=== PATIENT | female | born 1935 | race Caucasian/White ===

== ENCOUNTER 2019-09-23 18:44 | Emergency (ER) | payer MEDICARE ==
[~2019-09-23] VITALS: Ht 152.4 cm; Wt 127.0 kg
[~2019-09-23 18:44] MED LIST: BENA10 PO; CELE200 PO
[2019-09-23] MEDS ORDERED: EUTHYROX75 MC1 PO (18:58)
[2019-09-23] MEDS ORDERED: MICROZIDE12.5 M1 PO (18:59)
[2019-09-23] MEDS ORDERED: LOSARTAN POTAS100 MG PO (18:59)
[2019-09-23 19:05] LABS: Source, Urine Clean Catch
[2019-09-23 19:07] LABS: Appearance, Urine Clear (Clear); Bilirubin, Urine Neg (Neg); Blood, Urine 5+ (Neg); Color, Urine Yellow (P-Yellow); Glucose Qualitative, Urine Neg (Neg); Ketones, Urine 1+ (Neg); Leukocyte Esterase, Urine Neg (Neg); Nitrite, Urine Neg (Neg); Protein, Urine 2+ (Neg); Urobilinogen, Urine NORM (Normal)
[2019-09-23 19:23] LABS: Red Blood Cells, Urine 50-100 /hpf (0-2); White Blood Cells, Urine Not Seen /hpf (0-5)
[2019-09-23 19:24] LABS: BASOPHILS ABSOLUTE AUTO 0.03 K/mm3 (0.00-0.23); BASOPHILS PERCENT AUTO 0 % (0-2); EOSINOPHILS ABSOLUTE AUTO 0.07 K/mm3 (0.00-0.68); EOSINOPHILS PERCENT AUTO 1 % (0-6); Hematocrit 42.7 % (33.0-51.0); Hemoglobin 13.8 g/dL (11.5-16.0); IMMATURE GRAN ABSOLUTE AUTO 0.05 K/mm3 (0.00-0.10); IMMATURE GRAN PERCENT AUTO 1 % (0-1); LYMPHOCYTES ABSOLUTE AUTO 0.87 K/mm3 (0.84-5.20); LYMPHOCYTES PERCENT AUTO 11 % (21-46); MONOCYTES ABSOLUTE AUTO 0.41 K/mm3 (0.16-1.47); MONOCYTES PERCENT AUTO 5 % (4-13); Mean Corpuscular HGB 31.9 pg (26.0-34.0); Mean Corpuscular HGB Conc 32.3 g/dL (31.5-36.5); Mean Corpuscular Volume 99 fL (80-100); Mean Platelet Volume 11.4 fL (9.1-12.4); NEUTROPHILS ABSOLUTE AUTO 6.82 K/mm3 (1.96-9.15); NEUTROPHILS PERCENT AUTO 83 % (41-73); Platelet Count 116 K/mm3 (150-400); RDW Coefficient Variation 13.2 % (11.7-14.2); RDW Standard Deviation 47.7 fL (35.1-46.3); Red Blood Cell Count 4.32 M/mm3 (3.80-5.20); White Blood Cell Count 8.25 K/mm3 (4.00-11.30)
[2019-09-23 19:24] LABS: Bacteria Not Seen /hpf; Squamous Epithelial Cells Few /hpf (Few); Yeast/Fungi Urine Few /hpf
[2019-09-23 19:48] LABS: Albumin, Blood 3.6 g/dL (3.4-5.0); Albumin/Globulin Ratio 0.9 (0.8-1.8); Bilirubin, Total 0.5 mg/dL (0.1-1.0); Bun/Creatinine Ratio 24.8 (12.0-20.0); Calcium, Blood 8.8 mg/dL (8.5-10.1); Creatinine, Blood 1.21 mg/dL (0.40-1.00); Globulin, Blood 4.1 g/dL (2.2-4.0); Potassium, Blood 4.3 mmol/L (3.5-5.5); Total Protein, Blood 7.7 g/dL (6.4-8.2)
[2019-09-23] MEDS ORDERED: Norco 5-325 Ta1 EACH PO (21:11)
== END 2019-09-23 21:23 | disposition home or self-care (01) ==
LOC: ER 18:44
PROVIDERS: Emergency Medicine
DX: N13.2 Hydronephrosis with renal and ureteral calculous obstruction (principal); N28.9 Disorder of kidney and ureter, unspecified; Z88.5 Allergy status to narcotic agent; Z79.899 Other long term (current) drug therapy; I10 Essential (primary) hypertension; E03.9 Hypothyroidism, unspecified
CPT/HCPCS: 74176; 80053; 81001; 83690; 85025; 99284-25; A9270

== ENCOUNTER → 2019-10-27 | Outpatient (CLI) | payer MEDICARE ==
[~2019-10-27] MED LIST changes: +EUTHYROX75 MC1 PO; +LOSARTAN POTAS100 MG PO; +MICROZIDE12.5 M1 PO; +Norco 5-325 Ta1 EACH PO
== END | disposition home or self-care (01) ==
LOC: LAB 07:46 → LAB SHORT 07:46
DX: E03.9 Hypothyroidism, unspecified (principal); E11.8 Type 2 diabetes mellitus with unspecified complications; I10 Essential (primary) hypertension; E78.2 Mixed hyperlipidemia
CPT/HCPCS: 82043

== ENCOUNTER → 2021-10-31 | Outpatient (CLI) | payer MEDICARE ==
[~2021-10-31] MED LIST changes: +ACET500 PO; +DICY20 PO
== END | disposition home or self-care (01) ==
LOC: LAB 06:40 → LAB SHORT 06:40
DX: E11.8 Type 2 diabetes mellitus with unspecified complications (principal); R10.9 Unspecified abdominal pain
CPT/HCPCS: 82043; 87338

== ENCOUNTER 2022-12-22 04:16 | Observation (INO) | payer MEDICARE ==
[~2022-12-22] VITALS: Ht 152.4 cm; Wt 125.2 kg
[~2022-12-22 04:16] MED LIST changes: +AMLO10 PO; +AMOX875 PO; +Acetaminophen650 M1 PO; +CEPH500 PO; +HYDCHL25 PO; +LISI20 PO; +PREG50 PO; +SPIR50 PO
[2022-12-22 05:11] LABS: Source, Urine Voided
[2022-12-22 05:18] LABS: BASOPHILS ABSOLUTE AUTO 0.02 K/mm3 (0.00-0.23); BASOPHILS PERCENT AUTO 0 % (0-2); EOSINOPHILS ABSOLUTE AUTO 0.05 K/mm3 (0.00-0.68); EOSINOPHILS PERCENT AUTO 1 % (0-6); Hematocrit 38.9 % (33.0-51.0); Hemoglobin 13.1 g/dL (11.5-16.0); IMMATURE GRAN ABSOLUTE AUTO 0.03 K/mm3 (0.00-0.10); IMMATURE GRAN PERCENT AUTO 1 % (0-1); LYMPHOCYTES ABSOLUTE AUTO 0.85 K/mm3 (0.84-5.20); LYMPHOCYTES PERCENT AUTO 15 % (21-46); MONOCYTES ABSOLUTE AUTO 0.33 K/mm3 (0.16-1.47); MONOCYTES PERCENT AUTO 6 % (4-13); Mean Corpuscular HGB 32.3 pg (26.0-34.0); Mean Corpuscular HGB Conc 33.7 g/dL (31.5-36.5); Mean Corpuscular Volume 96 fL (80-100); Mean Platelet Volume 11.2 fL (9.1-12.4); NEUTROPHILS ABSOLUTE AUTO 4.59 K/mm3 (1.96-9.15); NEUTROPHILS PERCENT AUTO 78 % (41-73); Platelet Count 134 K/mm3 (150-400); RDW Coefficient Variation 12.5 % (11.7-14.2); RDW Standard Deviation 43.8 fL (35.1-46.3); Red Blood Cell Count 4.06 M/mm3 (3.80-5.20); White Blood Cell Count 5.87 K/mm3 (4.00-11.30)
[2022-12-22 05:32] LABS: Bilirubin, Urine Neg (Neg); Blood, Urine Neg (Neg); Glucose Qualitative, Urine Neg (Neg); Ketones, Urine Neg (Neg); Leukocyte Esterase, Urine Neg (Neg); Nitrite, Urine Neg (Neg); Protein, Urine 1+ (Neg); Urobilinogen, Urine NORM (Normal)
[2022-12-22 05:35] LABS: Albumin, Blood 3.5 g/dL (3.4-5.0); Albumin/Globulin Ratio 0.9 (0.8-1.8); Appearance, Urine Clear (Clear); Bilirubin, Total 0.5 mg/dL (0.1-1.0); Bun/Creatinine Ratio 22.7 (12.0-20.0); Calcium, Blood 9.1 mg/dL (8.5-10.1); Color, Urine Yellow (P-Yellow); Creatinine, Blood 1.1 mg/dL (0.40-1.00); Globulin, Blood 3.7 g/dL (2.2-4.0); Potassium, Blood 4.2 mmol/L (3.5-5.5); Total Protein, Blood 7.2 g/dL (6.4-8.2)
[2022-12-22 09:08] VITALS: BP 192/83
[2022-12-22 13:07] VITALS: BP 195/80
[2022-12-22 14:56] VITALS: BP 188/80
--- NOTE | 2022-12-22 15:31 | NUR ---
PT IS TOLORATING LIQUIDS WITH HELP OF NAUSEA AND PAIN MEDICATION. ADVANCED DIET TO FULL LIQUID AND UPDATED INSULIN ORDER ORDERED BY DR. MENESES. LOW SLIDING SCALE AC/HS
[2022-12-22 18:12] VITALS: BP 165/76
--- NOTE | 2022-12-22 19:15 | NUR ---
SHIFT SUMMARY PT IS ALERT AND ORIENTED X4. BEDREST DUE TO DIZZINESS, PAIN AND NAUSEA TREATED PER EMAR. PT IS TOLORATING A FULL LIQUID DIET AT THIS TIME. BED IS IN THE LOWEST POSITION WITH CALL LIGHT IN REACH. PT IS ABLE TO MAKE NEEDS KNOWN. BED ALARM ON FOR SAFETY.
[2022-12-22 19:26] VITALS: BP 160/69
[2022-12-23] VITALS (7 sets, daily range): BP systolic 160–202; BP diastolic 67–91
--- NOTE | 2022-12-23 05:07 | NUR ---
SHIFT SUMMARY PT IS A&O4, BEDREST FOR CHEPE DIOP IN PLACE, RA, PRN PAIN MEDICATION GIVEN Q2 HOURS FOR RUQ PAIN PER MAR, PT REFUSED MORNING LAB DRAW, CONTINUE POC
[2022-12-23 12:19] LABS: BASOPHILS ABSOLUTE AUTO 0.01 K/mm3 (0.00-0.23); BASOPHILS PERCENT AUTO 0 % (0-2); EOSINOPHILS ABSOLUTE AUTO 0.05 K/mm3 (0.00-0.68); EOSINOPHILS PERCENT AUTO 1 % (0-6); Hematocrit 36.4 % (33.0-51.0); Hemoglobin 12.2 g/dL (11.5-16.0); IMMATURE GRAN ABSOLUTE AUTO 0.02 K/mm3 (0.00-0.10); IMMATURE GRAN PERCENT AUTO 0 % (0-1); LYMPHOCYTES ABSOLUTE AUTO 1.05 K/mm3 (0.84-5.20); LYMPHOCYTES PERCENT AUTO 17 % (21-46); MONOCYTES ABSOLUTE AUTO 0.39 K/mm3 (0.16-1.47); MONOCYTES PERCENT AUTO 6 % (4-13); Mean Corpuscular HGB Conc 33.5 g/dL (31.5-36.5); Mean Corpuscular Volume 96 fL (80-100); Mean Platelet Volume 11.1 fL (9.1-12.4); NEUTROPHILS ABSOLUTE AUTO 4.63 K/mm3 (1.96-9.15); NEUTROPHILS PERCENT AUTO 75 % (41-73); Platelet Count 133 K/mm3 (150-400); RDW Coefficient Variation 12.8 % (11.7-14.2); RDW Standard Deviation 44.8 fL (35.1-46.3); Red Blood Cell Count 3.81 M/mm3 (3.80-5.20); White Blood Cell Count 6.15 K/mm3 (4.00-11.30)
[2022-12-23 12:45] LABS: Albumin, Blood 3.1 g/dL (3.4-5.0); Albumin/Globulin Ratio 0.9 (0.8-1.8); Bilirubin, Total 0.6 mg/dL (0.1-1.0); Bun/Creatinine Ratio 20.6 (12.0-20.0); Calcium, Blood 8.8 mg/dL (8.5-10.1); Creatinine, Blood 1.07 mg/dL (0.40-1.00); Globulin, Blood 3.4 g/dL (2.2-4.0); Thyroid Stimulating Hormone 2.62 uIU/mL (0.360-4.800); Total Protein, Blood 6.5 g/dL (6.4-8.2)
--- NOTE | 2022-12-23 17:32 | NUR ---
SHIFT SUMMARY PT ALERT AND ORIENTED X4. REPORTS PAIN NOT CONTROLLED WITH MEDICAITONS WE HAVE TRIED SO FAR. DR. MENESES NOTIFIED. SEE EMAR. PT HAD SOME EPISODES OF RETCHING WITHOUT VOMIT. PT IS TOLORATING ADA DIET. SBA TO THE CHAIR AND BACK TO BED. PT BECOMES VERY UPSET WHEN REQUIRED TO CHANGE POSITIONS WITH CARE. SHE IS ABLE TO MAKE NEEDS KNOWN, CALL LIGHT IS IN REACH, BED IN THE LOWEST POSITION WITH ALARM ON. NO ACUTE CHANGES THIS SHIFT
[2022-12-24 01:00] VITALS: BP 151/63
[2022-12-24 05:03] VITALS: BP 150/64
[2022-12-24 05:45] LABS: BASOPHILS ABSOLUTE AUTO 0.01 K/mm3 (0.00-0.23); BASOPHILS PERCENT AUTO 0 % (0-2); EOSINOPHILS ABSOLUTE AUTO 0.04 K/mm3 (0.00-0.68); EOSINOPHILS PERCENT AUTO 1 % (0-6); Hematocrit 36.2 % (33.0-51.0); Hemoglobin 12.2 g/dL (11.5-16.0); IMMATURE GRAN ABSOLUTE AUTO 0.02 K/mm3 (0.00-0.10); IMMATURE GRAN PERCENT AUTO 0 % (0-1); LYMPHOCYTES ABSOLUTE AUTO 1.07 K/mm3 (0.84-5.20); LYMPHOCYTES PERCENT AUTO 19 % (21-46); MONOCYTES ABSOLUTE AUTO 0.52 K/mm3 (0.16-1.47); MONOCYTES PERCENT AUTO 9 % (4-13); Mean Corpuscular HGB 32.4 pg (26.0-34.0); Mean Corpuscular HGB Conc 33.7 g/dL (31.5-36.5); Mean Corpuscular Volume 96 fL (80-100); Mean Platelet Volume 11.2 fL (9.1-12.4); NEUTROPHILS ABSOLUTE AUTO 3.95 K/mm3 (1.96-9.15); NEUTROPHILS PERCENT AUTO 70 % (41-73); Platelet Count 133 K/mm3 (150-400); RDW Coefficient Variation 12.8 % (11.7-14.2); Red Blood Cell Count 3.77 M/mm3 (3.80-5.20); White Blood Cell Count 5.61 K/mm3 (4.00-11.30)
--- NOTE | 2022-12-24 05:59 | NUR ---
SHIFT SUMMARY PT LAYING IN BED WITH EYES CLOSED DURING BEDSIDE REPORT FROM TERRA, PT AWAKENED AND REPORTED INCREASED PAIN - GAVE TRAMADOL WITH HS MEDS- PT HYPERTENSIVE - GAVE HYDRALAZINE, BP CONTINUED TO BE INCREASED- PT REPORTED HAVING PAIN AND SENSITIVE TO BP CUFF- WILL MONITOR, PT CONCERNED ABOUT TAKING OXYCODONE D/T FIRST DOSE UPSET STOMACH, WILL GIVE AFTER SCHEDULED ZOFRAN DOSE, PT TOLERATED WELL- PT REPORTED PAIN RELIEF, PUREWICK CHANGED - PT ABLE TO ASSIST WITH TURNING IN BED- PT BED LOW POSITION, CALL LIGHT WITHIN REACH
[2022-12-24 06:06] LABS: Albumin/Globulin Ratio 0.9 (0.8-1.8); Bilirubin, Total 1.5 mg/dL (0.1-1.0); Bun/Creatinine Ratio 17.9 (12.0-20.0); Calcium, Blood 8.7 mg/dL (8.5-10.1); Creatinine, Blood 1.17 mg/dL (0.40-1.00); Globulin, Blood 3.4 g/dL (2.2-4.0); Potassium, Blood 3.9 mmol/L (3.5-5.5); Total Protein, Blood 6.4 g/dL (6.4-8.2)
[2022-12-24 07:44] VITALS: BP 151/72
[2022-12-24] MEDS ORDERED: ONDA4ODT PO (14:29)
[2022-12-24] MEDS ORDERED: OXAYDO5 M1 PO (14:30)
--- NOTE | 2022-12-24 15:04 | NUR ---
DISCHARGE PT DISCHARGED AFTER EDUCATION WAS COMPLETED WITH BRET ARGUELLO. PT DENIED FURTHER NEED FOR INSTRUCTION AND UNDERSTOOD NEW MEDS/FOLLOW UP INSTRUCTIONS. IV REMOVED & INTACT. PT WHEELED OUT BY AIDE & DRIVEN HOME BY FAMILY. MEDIATED FOR PAIN PRIOR TO DC.
== END 2022-12-24 15:02 | disposition home or self-care (01) ==
LOC: ER 04:16 → MEDS 07:17
PROVIDERS: Emergency Medicine; ADMIT Internal Medicine
DX: K85.90 Acute pancreatitis without necrosis or infection, unspecified (principal); E03.9 Hypothyroidism, unspecified; E11.22 Type 2 diabetes mellitus with diabetic chronic kidney disease; I12.9 Hypertensive chronic kidney disease with stage 1 through stage 4 chronic kidney disease, or unspecified chronic kidney disease; N18.32 Chronic kidney disease, stage 3b; E78.5 Hyperlipidemia, unspecified; E66.9 Obesity, unspecified
CPT/HCPCS: 36415; 74176; 80053; 82947; 83690; 84443; 85025; 93005; 93010; 96361; 96372; 96374; 96375; 96376; 99285-25; A9270; G0378; J0360; J1170; J1650; J2270; J2405; J2765; J3010; J7120

== ENCOUNTER 2022-12-31 13:50 | Emergency (ER) | payer MEDICARE ==
[~2022-12-31] VITALS: Ht 152.4 cm; Wt 123.4 kg
[~2022-12-31 13:50] MED LIST changes: +ONDA4ODT PO; +OXAYDO5 M1 PO
[2022-12-31 14:32] VITALS: BP 168/86
[2022-12-31 15:02] LABS: BASOPHILS ABSOLUTE AUTO 0.02 K/mm3 (0.00-0.23); BASOPHILS PERCENT AUTO 0 % (0-2); EOSINOPHILS ABSOLUTE AUTO 0.06 K/mm3 (0.00-0.68); EOSINOPHILS PERCENT AUTO 1 % (0-6); Hematocrit 42.3 % (33.0-51.0); Hemoglobin 14.3 g/dL (11.5-16.0); IMMATURE GRAN ABSOLUTE AUTO 0.04 K/mm3 (0.00-0.10); IMMATURE GRAN PERCENT AUTO 1 % (0-1); LYMPHOCYTES ABSOLUTE AUTO 1.23 K/mm3 (0.84-5.20); LYMPHOCYTES PERCENT AUTO 20 % (21-46); MONOCYTES ABSOLUTE AUTO 0.52 K/mm3 (0.16-1.47); MONOCYTES PERCENT AUTO 8 % (4-13); Mean Corpuscular HGB 32.4 pg (26.0-34.0); Mean Corpuscular HGB Conc 33.8 g/dL (31.5-36.5); Mean Corpuscular Volume 96 fL (80-100); NEUTROPHILS ABSOLUTE AUTO 4.41 K/mm3 (1.96-9.15); NEUTROPHILS PERCENT AUTO 70 % (41-73); RDW Coefficient Variation 12.4 % (11.7-14.2); RDW Standard Deviation 44.1 fL (35.1-46.3); Red Blood Cell Count 4.42 M/mm3 (3.80-5.20); White Blood Cell Count 6.28 K/mm3 (4.00-11.30)
[2022-12-31 15:11] LABS: Albumin, Blood 3.6 g/dL (3.4-5.0); Albumin/Globulin Ratio 0.9 (0.8-1.8); Bilirubin, Total 0.7 mg/dL (0.1-1.0); Calcium, Blood 9.2 mg/dL (8.5-10.1); Creatinine, Blood 1.28 mg/dL (0.40-1.00); Globulin, Blood 4.1 g/dL (2.2-4.0); Magnesium, Blood 1.9 mg/dL (1.6-2.4); Potassium, Blood 4.2 mmol/L (3.5-5.5); Total Protein, Blood 7.7 g/dL (6.4-8.2)
[2022-12-31 15:13] LABS: Cholesterol 158 mg/dL (50-200); Triglycerides 151 mg/dL (30-160)
== END 2022-12-31 18:03 | disposition home or self-care (01) ==
LOC: ER 13:50
PROVIDERS: Student in an Organized Health Care Education/Training Program
DX: R10.11 Right upper quadrant pain (principal); I12.9 Hypertensive chronic kidney disease with stage 1 through stage 4 chronic kidney disease, or unspecified chronic kidney disease; E11.22 Type 2 diabetes mellitus with diabetic chronic kidney disease; N18.9 Chronic kidney disease, unspecified; E78.5 Hyperlipidemia, unspecified; Z79.899 Other long term (current) drug therapy; Z88.5 Allergy status to narcotic agent
CPT/HCPCS: 74018; 76705; 80053; 82465; 83605; 83690; 83735; 84478; 85025; 93005; 93010; 96361; 96374; 96375; 96376; 99285-25; J2405; J3010; J7030